=== PATIENT | female | born 1970 | race Caucasian/White ===

== ENCOUNTER → 2016-08-23 | Outpatient (CLI) | payer OTHER, MEDICAID ==
[~2016-08-23] MED LIST: GABA100C4 PO; IBUP800T23 PO; MELA1TAB18 PO; NORC5TAB PO; NORT10CA PO; OXYC-360 PO; PREN0.01 PO; PSEU30TA PO; ZOLO25TA PO
--- NOTE | 2016-08-23 10:20 | RADRPT ---
EXAM DATE/TIME: 08/23/2016 08:17 [facility] COMPARISON: No previous studies available for comparison. INDICATIONS : Right thumb pain post fall with loss of strength. MEDICAL HISTORY : None. SURGICAL HISTORY : Umbilical hernia repair. ENCOUNTER: Subsequent ACUITY: 3 weeks PAIN SCORE: 3/10 LOCATION: Right thumb TECHNIQUE: Multiplanar, multisequence MRI examination was performed without contrast. FINDINGS: BONE/CARTILAGE: Bone marrow signal is homogeneous. Articular cartilage signal is within normal limits. TENDONS: All of the visualized tendons are intact. MISCELLANEOUS: The ulnar collateral ligament of the first carpal phalangeal joint is torn. There is a 1 mm separatio n between the torn segments. The base of the ligament at its metacarpal attachment is obliquely flare d outward. Surrounding tissue as the appearance of granulation tissue indicating that this is subacut e. The radial collateral ligament appears intact. CONCLUSION: Ulnar collateral ligament injury of the thumb at the first metacarpal phalangeal joint characteristic of a Stener lesion. Degree of separation and orientation of the base of the ligament may not be amenable to spontaneous h ealing. Stephen Jose MD on August 23, 2016 at 9:55 Board Certified Radiologist. This report was verified electronically.
== END ==
LOC: HRAD 07:34
DX: S63.649D Sprain of metacarpophalangeal joint of unspecified thumb, subsequent encounter (principal); M25.541 Pain in joints of right hand; X58.XXXD Exposure to other specified factors, subsequent encounter
CPT/HCPCS: 73218

== ENCOUNTER → 2016-09-20 | Day surgery (SDC) | payer OTHER, MEDICAID ==
[~2016-09-20] VITALS: Ht 170.2 cm; Wt 84.5 kg
[~2016-09-20] MED LIST changes: +*ONDANSETRON 4 MG VIAL PERIprocedural Use ONLY ONE; +ACETAMINOPHEN 1000 MG/100 ML VIAL IV ONE; +BUPIVACAINE HCL PF 0.5% 30 ML VIAL ONE; +DEXT 5%-NACL 0.45% 1000 ML INJ 1,000 ML IV SCH; +DO NOT ADM ANY ANTICOAGULANT DRUGS XX PRN; +FAMOTIDINE 20 MG/2 ML VIAL ONE; +INSULIN HUMAN REGULAR 1,000 UNITS/10 ML VIAL SQ PRN; +LACTATED RINGER'S 1000 ML IV SCH; +METOPROLOL TARTRATE 25 MG TAB PO PRN; +MIDAZOLAM HCL 2 MG/2 ML VIAL ONE; +ONDANSETRON HCL 4 MG/2 ML VIAL IV PUSH ONE; -OXYC-360 PO; +POVIDONE IODINE 10% OINT 1 PACKET TOP ONE; -PREN0.01 PO; +PROPOFOL 200 MG/20 ML AMP IV ONE; -PSEU30TA PO; +SODIUM CHLORID 0.9% 500 ML IV SCH; +SODIUM CHLORIDE 0.9% FLUSH 5 ML FLUSH IVF PRN; +SODIUM CHLORIDE 0.9% FLUSH 5 ML FLUSH IVF SCH; -ZOLO25TA PO; +ceFAZolin 2 GM PREMIX 50 ML IV SCH; +ceFAZolin 2 GM PREMIX 50 ML ONE
[2016-09-20 10:08] VITALS: BP 150/79; PULSE 80; RESP 16; TEMP 98; O2SAT 100
[2016-09-20 10:34] LABS: AUTOMATED NEUTROPHIL # 4.2 TH/MM3 (1.8-7.7); BASOPHIL % 0.6 % (0.0-2.0); EOSINOPHIL # 0.1 TH/MM3 (0-0.4); EOSINOPHIL % 1.3 % (0.0-4.0); HEMO FLAGS DIFF FINAL; LYMPH % 22.3 % (9.0-44.0); LYMPHOCYTE # 1.4 TH/MM3 (1.0-4.8); MEAN CELL VOLUME 86.7 FL (80.0-100.0); MEAN CORPUSCULAR HEMOGLOBIN 29.7 PG (27.0-34.0); MEAN CORPUSCULAR HGB CONC 34.2 % (32.0-36.0); MONO % 7.7 % (0.0-8.0); NEUT % 68.1 % (16.0-70.0); PLATELET COUNT 176 TH/MM3 (150-450); RED BLOOD COUNT 4.73 MIL/MM3 (4.00-5.30); RED CELL DISTRIBUTION WIDTH 12.9 % (11.6-17.2); WHITE BLOOD COUNT 6.1 TH/MM3 (4.0-11.0)
--- NOTE | 2016-09-20 11:19 | HP.UPD ---
H&P Update Date: Sep 20, 2016 Note The Pre-Admit History and Physical Examination regarding the above named patient was reviewed (including, but not limited to, vital signs, medications, allergies, co-morbid conditions), and upon re-examination it is noted that: Indicated with "X" x - the patient's condition has not significantly changed since the last examination. [] - the patient's condition has changed since the last examination. Changes: Zayra Jorge MD Sep 20, 2016 11:19
--- NOTE | 2016-09-20 13:55 | HHI.PR ---
Immediate Post Op Note Procedure Date: Sep 20, 2016 Pre Op Diagnosis: (1) Sprain of metacarpophalangeal (joint) of hand Post Op Diagnosis: (1) Sprain of metacarpophalangeal (joint) of hand Surgeon: Zayra Jorge Ordinary Seaman(s): None Procedure: Repair of tear of right thumb metacarpal phalangeal joint ulnar collateral ligament. Anesthesia: General Drains: None Tourniquet time (min at mmHg) 1 hour and 7 minutes at 220 mmHg. Patient to: PACU Patient Condition: Good Implant/Devices: SEE IMPLANT LOG (if applicable) Date/Time of Procedure: SEE SURGICAL CARE RECORD Zayra Jorge MD Sep 20, 2016 13:55
[2016-09-20 15:40] VITALS: BP 133/71; PULSE 94; RESP 16; TEMP 98.9; O2SAT 98
--- NOTE | 2016-09-21 17:53 | MP ---
cc: CHRISTIANO LOWERY M.D. DATE OF SURGERY: 09/20/2016. PREOPERATIVE DIAGNOSIS: Sprain of the right thumb MP joint ulnar collateral ligament. POSTOPERATIVE DIAGNOSIS: Sprain of the right thumb MP joint ulnar collateral ligament. OPERATIVE PROCEDURE PERFORMED: repair of the ulnar collateral ligament of the right thumb MP joint. ANESTHESIA: General. SURGEON: Christiano Lowery M.D. INDICATIONS FOR THE PROCEDURE: 46-year-old female who injured her thumb approximately a month ago. FINDINGS: The lower lip of the ligament was completely torn. The upper portion of the ligament was completely intact. There was definite laxity. The lower ligament, which had avulsed from the base of the proximal phalanx was outside of the aponeurosis creating a Stener lesion. At the completion of the procedure, the MP joint was stabilized into an anatomic position. The ligament had been repaired. TOURNIQUET TIME: One hour and seven minutes. DESCRIPTION OF THE PROCEDURE IN DETAIL: The patient was seen preoperatively where the site and side were identified and marked. The patient was then taken to the operating room and placed in a supine position. Her identity was checked against the arm band and the consent form site and side confirmed, time-out called prior to beginning the procedure. The right upper extremity was prepped with Hibiclens and draped in the usual sterile fashion. The area to be incised were outlined with a marking pen as a zigzag incision over the ulnar collateral ligament. The arm was exsanguinated and the tourniquet inflated to 220 mmHg. Bupivacaine 0.5% plain was then injected proximally as a field block. The incision was made down through skin down to the subcutaneous tissue. Under loupe magnification, flaps were elevated and raised. The ligament was identified and from scarring and adjacent nerves and subcutaneous tissue. It was then from the aponeurosis. The aponeurosis was then opened by incising it just to the ulnar side of the extensor tendon and reflected in an ulnar direction exposing the joint. The ligament was carefully dissected free of its attachments to the extensor aponeurosis. The wound was inspected and it was noted that the dorsal portion of the ligament was intact. There was some instability on the lower portion, but this was minimal. There was some adequate tissue where the lower portion had avulsed from the base of the proximal phalanx. The decision was made to repair this portion of the ligament. The thumb was then placed in an ulnar direction at the MP joint to take the stress off the joint and an 045 K-wire was driven from proximal to distal across the joint. The position was checked with a mini C-arm. The pin was cut to length, it was bent and a Nathaniel ball was placed on top of the hand. The ligament was then debrided on both the proximal distal portion and it was repaired with 3-0 Ethibond suture material. An additional stitch of 4-0 Mersilene was used to secure the ligament to the adjacent dorsal ligament. Once the ligament was repaired, the wound was copiously irrigated with saline and the extensor aponeurosis was repaired with 4-0 Mersilene suture material. The wound was again irrigated and additional Marcaine was injected into this area. The wound was then closed with interrupted running 5-0 nylon suture. The tourniquet was released after 1 hour and 7 minutes. Pressure was applied. After several minutes, there was no evidence of any oozing and a dressing was applied using povidone-iodine ointment, Adaptic, Telfa, fluffy gauze and a thumb spica splint. The patient was then taken from the operating room to the recovery room in satisfactory condition having tolerated the procedure well. Postoperative instructions include keeping the arm elevated, keeping the area clean and dry and returning in several days for followup. The patient was given a prescription for [place] 5/325 as well as ibuprofen 800 mg. MD CARLIE Drake/RONALD /2:00 PM /5:45 PM
== END | disposition home or self-care (01) ==
LOC: HSDC 09:24
PROVIDERS: ATTEND Specialist
DX: S63.641A Sprain of metacarpophalangeal joint of right thumb, initial encounter (principal); W19.XXXA Unspecified fall, initial encounter
CPT/HCPCS: 01810; 26540; 76000; 85025; J0131; J0690; J2250; J2405; J3010; J7120; L3808

== ENCOUNTER → 2017-02-05 | Outpatient (CLI) | payer OTHER ==
[~2017-02-05] MED LIST changes: -*ONDANSETRON 4 MG VIAL PERIprocedural Use ONLY ONE; -ACETAMINOPHEN 1000 MG/100 ML VIAL IV ONE; +BACL10TA PO; -BUPIVACAINE HCL PF 0.5% 30 ML VIAL ONE; -DEXT 5%-NACL 0.45% 1000 ML INJ 1,000 ML IV SCH; -DO NOT ADM ANY ANTICOAGULANT DRUGS XX PRN; -FAMOTIDINE 20 MG/2 ML VIAL ONE; -IBUP800T23 PO; -INSULIN HUMAN REGULAR 1,000 UNITS/10 ML VIAL SQ PRN; -LACTATED RINGER'S 1000 ML IV SCH; -METOPROLOL TARTRATE 25 MG TAB PO PRN; -MIDAZOLAM HCL 2 MG/2 ML VIAL ONE; -NORC5TAB PO; -ONDANSETRON HCL 4 MG/2 ML VIAL IV PUSH ONE; -POVIDONE IODINE 10% OINT 1 PACKET TOP ONE; -PROPOFOL 200 MG/20 ML AMP IV ONE; -SODIUM CHLORID 0.9% 500 ML IV SCH; -SODIUM CHLORIDE 0.9% FLUSH 5 ML FLUSH IVF PRN; -SODIUM CHLORIDE 0.9% FLUSH 5 ML FLUSH IVF SCH; -ceFAZolin 2 GM PREMIX 50 ML IV SCH; -ceFAZolin 2 GM PREMIX 50 ML ONE
--- NOTE | 2017-02-05 17:03 | RADRPT ---
EXAM DATE/TIME: 02/05/2017 16:50 [facility] COMPARISON: No previous studies available for comparison. INDICATIONS : Right knee pain and swelling for one week. No known injury. MEDICAL HISTORY : Osteoarthritis. SURGICAL HISTORY : None. ENCOUNTER: Initial ACUITY: 1 week PAIN SCORE: 4/10 LOCATION: Right knee. FINDINGS: Four view examination of the right knee demonstrates no evidence of fracture or dislocation. Bony mi neralization is normal. Mild bony degenerative changes. The suprapatellar soft tissues have a normal configuration. CONCLUSION: Mild primary bony degenerative changes at the knee. Miller Balderas MD on February 05, 2017 at 17:00 Board Certified Radiologist. This report was verified electronically.
== END ==
LOC: HRAD 16:18
DX: M25.561 Pain in right knee (principal)
CPT/HCPCS: 73564

== ENCOUNTER → 2017-04-09 | Outpatient (CLI) | payer OTHER ==
--- NOTE | 2017-04-09 16:51 | RADRPT ---
EXAM DATE/TIME: 04/09/2017 16:14 [facility] COMPARISON: No previous studies available for comparison. INDICATIONS : Right hand, 1st digit growth at the MCPJ with pain. MEDICAL HISTORY : None. SURGICAL HISTORY : Right hand, thumb tendon repair in [facility]. ENCOUNTER: Initial ACUITY: 3 months PAIN SCORE: 7/10 LOCATION: Right hand, 1st digit. FINDINGS: Three view examination of the right hand demonstrates no soft tissue swelling, dislocation, or fractu re. The carpal bones appear intact. The interphalangeal and metacarpophalangeal joints are intact. Bony mineralization is normal. There may be some partial capsular calcification at the first MCP travis int. Small spur subjacent to the arrow indicating the area of pain probably represents a region of no rmal tendinous attachment. CONCLUSION: 1. Possible partial capsular calcification at the first MCP joint. 2. Otherwise negative. No fracture. Griffin Moody MD on April 09, 2017 at 16:47 Board Certified Radiologist. This report was verified electronically.
== END ==
LOC: HRAD 16:03
PROVIDERS: ATTEND Family Medicine
DX: M79.644 Pain in right finger(s) (principal)
CPT/HCPCS: 73130

== ENCOUNTER 2017-05-07 22:36 | Emergency (ER) | payer OTHER ==
[~2017-05-07] VITALS: Ht 170.2 cm; Wt 85.5 kg
[2017-05-07 22:42] VITALS: BP_SYST 136; BP_SYST 164; BP_DIAS 77; BP_DIAS 91; PULSE 91; RESP 16; TEMP 97.9; O2SAT 97
[2017-05-07] MEDS ORDERED: IBUPROFEN 600 MG TAB PO ONE (23:45)
[2017-05-08] MEDS ORDERED: DIPHTH/TETANUS/ACEL PERTUSSIS (BOOSTER) 0.5 ML VIAL/PFS IM ONE
[2017-05-08] MEDS ORDERED: LIDOCAINE HCL 2% 50 ML VIAL NERV BLOCK ONE
--- NOTE | 2017-05-08 00:36 | PD ---
HPI Chief Complaint: Laceration/Skin Injury Time Seen by Provider: 23:45 Travel History International Travel<30 days: No Contact w/Intl Traveler<30days: No Traveled to known affect area: No History of Present Illness HPI patient is a 47-year-old female who presents emergency department after sustaining a laceration to her left upper extremity. Patient was at work when she reached into a parked car machine and cut herself on the machine. States it happened approximately 2 hours prior to arrival. She had put some antibiotic cream on it. Denies any other injuries. PFSH Past Medical History Cancer: No Cardiovascular Problems: No Diabetes: No Diminished Hearing: No Endocrine: No Genitourinary: No Hepatitis: No Hiatal Hernia: No Immune Disorder: No Musculoskeletal: Yes (arthritis ) Neurologic: No Psychiatric: Yes Reproductive: No Respiratory: No Immunizations Current: No Thyroid Disease: No Tetanus Vaccination: Unknown Influenza Vaccination: No ?: Not LMP: 05/05/17 : 5 Para: 3 Miscarriage: 1 Past Surgical History Abdominal Surgery: Yes (hernia repair) AICD: No Joint Replacement: No Pacemaker: No Other Surgery: Yes Social History Alcohol Use: Yes (RARELY) Tobacco Use: No Substance Use: No Allergies-Medications (Allergen,Severity, Reaction): Coded Allergies: No Known Allergies (Verified , 05/07/17) Reported Meds & Prescriptions Reported Meds & Active Scripts Active Reported Baclofen 10 Mg Tab 10 Mg PO TID Melatonin 10 Mg Tab 10 Mg PO HS PRN Gabapentin 100 Mg Cap 100 Mg PO HS Nortriptyline (Nortriptyline HCl) 10 Mg Cap 30 Mg PO DAILY Review of Systems Except as stated in HPI: all other systems reviewed are Neg Physical Exam Narrative GENERAL: Well-nourished, well-developed patient. SKIN: Focused skin assessment warm/dry. There is a 1-1/2 cinnamon a laceration transverse over the volar aspect of the left forearm. No bleeding, tendon motions intact. No foreign body is seen. HEAD: Normocephalic. EYES: No scleral icterus. No injection or drainage. NECK: Supple, trachea midline. No JVD or lymphadenopathy. CARDIOVASCULAR: Regular rate and rhythm without murmurs, gallops, or rubs. RESPIRATORY: Breath sounds equal bilaterally. No accessory muscle use. GASTROINTESTINAL: Abdomen soft, non-tender, nondistended. MUSCULOSKELETAL: No cyanosis, or edema. BACK: Nontender without obvious deformity. No CVA tenderness. Data Data Last Documented VS Vital Signs Date Time Temp Pulse Resp B/P (MAP) Pulse Ox O2 Delivery O2 Flow Rate FiO2 05/07/17 23:48 18 05/07/17 22:42 97.9 91 164/91 (115) 97 Orders Orders Ibuprofen (Motrin) (05/07/17 23:45) Lidocaine 2% Inj (Xylocaine 2% Inj) (05/08/17 00:00) Kgsl-Uef-Herhiv (Booster) Inj (Boostrix (05/08/17 00:00) MDM Medical Decision Making Medical Screen Exam Complete: Yes Emergency Medical Condition: Yes Differential Diagnosis Laceration, infection unlikely, tendon laceration highly unlikely. Narrative Course Patient roomed emerged permit, wound is approximated, no indication for antibiotics. Discussed wound care and follow-up for suture removal. Procedures Procedure Narrative LACERATION LOCATION: Left forearm LENGTH: 1&1/2 cm NUMBER OF STITCHES/GARETT: 1 REPAIR: The area of the laceration was irrigated copiously with normal saline. The laceration was infiltrated with 2% lidocaine plain. The wound was copiously irrigated and explored without evidence of foreign body, tendon injury or neurovascular injury. The wound was closed using 1 times nylon 3-0. This was a single layer repair. A sterile dressing was applied. The patient was advised to keep the dressing clean and dry. Patient tolerated the procedure well. Diagnosis Primary Impression: Laceration of forearm, left Additional Instructions: Return to ED in 10-14 days for suture removal. Disposition: 01 DISCHARGE HOME Condition: Stable Elias Gibbons MD May 08, 2017 00:36
== END 2017-05-08 01:01 | disposition home or self-care (01) ==
LOC: PHED 22:36 → PHEFT 05-08 01:01
DX: S51.812A Laceration without foreign body of left forearm, initial encounter (principal); Z23 Encounter for immunization; Z87.39 Personal history of other diseases of the musculoskeletal system and connective tissue; W31.89XA Contact with other specified machinery, initial encounter; Y99.0 Civilian activity done for income or pay
CPT/HCPCS: 12001; 90471; 90715

== ENCOUNTER 2017-05-19 12:22 | Emergency (ER) | payer OTHER ==
[~2017-05-19] VITALS: Ht 170.2 cm; Wt 85.0 kg
[2017-05-19 12:24] VITALS: BP 139/82; PULSE 83; RESP 16; TEMP 98; O2SAT 97
--- NOTE | 2017-05-19 13:01 | PD ---
HPI Chief Complaint: Wound/Suture/Staple Re-Check Time Seen by Provider: 12:40 Travel History International Travel<30 days: No Contact w/Intl Traveler<30days: No Traveled to known affect area: No History of Present Illness HPI 47-year-old female that presents to the ED for evaluation of suture removal. Patient had a laceration to her left forearm and was repaired here 10 days ago. She has no complaints from it. She has one suture in place. No signs of infection. No pain. No other medical complaint. She has been doing wound care as told by her doctor. This is a worker's comp complaint. PFSH Past Medical History Cancer: No Cardiovascular Problems: No Diabetes: No Diminished Hearing: No Endocrine: No Genitourinary: No Hepatitis: No Hiatal Hernia: No Immune Disorder: No Musculoskeletal: Yes (arthritis ) Neurologic: No Psychiatric: Yes Reproductive: No Respiratory: No Immunizations Current: No Thyroid Disease: No ?: Not LMP: 05/05/17 : 5 Para: 3 Miscarriage: 1 Past Surgical History Abdominal Surgery: Yes (hernia repair) AICD: No Joint Replacement: No Pacemaker: No Other Surgery: Yes Social History Alcohol Use: Yes (RARELY) Tobacco Use: No Substance Use: No Allergies-Medications (Allergen,Severity, Reaction): Coded Allergies: No Known Allergies (Verified , 05/19/17) Reported Meds & Prescriptions Reported Meds & Active Scripts Active Reported Baclofen 10 Mg Tab 10 Mg PO TID Melatonin 10 Mg Tab 10 Mg PO HS PRN Gabapentin 100 Mg Cap 100 Mg PO HS Nortriptyline (Nortriptyline HCl) 10 Mg Cap 30 Mg PO DAILY Review of Systems Except as stated in HPI: all other systems reviewed are Neg Physical Exam Narrative GENERAL: SKIN: Warm and dry. Patient has superficial 1 similar laceration to left forearm. One suture noted. Well-healed. No signs of infection or erythema HEAD: Atraumatic. Normocephalic. EYES: Pupils equal and round. No scleral icterus. No injection or drainage. ENT: No nasal bleeding or discharge. Mucous membranes pink and moist. NECK: Trachea midline. No JVD. CARDIOVASCULAR: Regular rate and rhythm. RESPIRATORY: No accessory muscle use. Clear to auscultation. Breath sounds equal bilaterally. GASTROINTESTINAL: Abdomen soft, non-tender, nondistended. Hepatic and splenic margins not palpable. MUSCULOSKELETAL: Extremities without clubbing, cyanosis, or edema. No obvious deformities. Full range of motion of the upper and lower extremities bilaterally. 2+ pulses bilaterally. NEUROLOGICAL: Awake and alert. No obvious cranial nerve deficits. Motor grossly within normal limits. Five out of 5 muscle strength in the arms and legs. Normal speech. PSYCHIATRIC: Appropriate mood and affect; insight and judgment normal. Data Data Last Documented VS Vital Signs Date Time Temp Pulse Resp B/P (MAP) Pulse Ox O2 Delivery O2 Flow Rate FiO2 05/19/17 12:24 98.0 83 16 139/82 (101) 97 Orders Orders Ed Discharge Order (05/19/17 12:58) MDM Medical Decision Making Medical Screen Exam Complete: Yes Emergency Medical Condition: Yes Medical Record Reviewed: Yes Differential Diagnosis Suture removal versus wound check versus wound infection Narrative Course 39-year-old female that presents to the ED for evaluation suture removal. Patient was properly examined and was found to have signs and symptoms consistent suture removal. After splint proceeded to the patient and she agreed to it suture was removed using sterile suture removal kit by me. One suture was removed with minimal discomfort for the patient. Patient was told to continue doing wound care. Close follow-up with PCP. See ED worsening symptoms. Diagnosis Primary Impression: Visit for suture removal Patient Instructions: General Instructions Additional Instructions: Follow-up with PCP. See ED for any worsening symptoms. Med/Other Pt SpecificInfo: No Change to Meds, Wound Care Disposition: 01 DISCHARGE HOME Condition: Stable Jonas Reese May 19, 2017 13:01
== END 2017-05-19 13:16 | disposition home or self-care (01) ==
LOC: PHEFT 12:22
DX: S51.812D Laceration without foreign body of left forearm, subsequent encounter (principal); X58.XXXD Exposure to other specified factors, subsequent encounter
CPT/HCPCS: 99281

== ENCOUNTER 2017-06-22 13:42 | Emergency (ER) | payer OTHER ==
[~2017-06-22] VITALS: Ht 170.2 cm; Wt 84.5 kg
[2017-06-22 13:47] VITALS: BP 166/71; PULSE 79; RESP 16; TEMP 98.3; O2SAT 98
[2017-06-22] MEDS ORDERED: AMOXICILLIN/CLAVULANATE K 875 MG TAB PO ONE (14:00)
[2017-06-22] MEDS ORDERED: AUGM875T3 PO (14:02)
--- NOTE | 2017-06-22 14:03 | PD ---
HPI Chief Complaint: Bite or Sting Time Seen by Provider: 13:57 Travel History International Travel<30 days: No Contact w/Intl Traveler<30days: No Traveled to known affect area: No History of Present Illness HPI The patient is a 47-year-old female who presents to the emergency department for a cat bite to the right foot. The patient states there is a cat that comes under the neighbors fence, she believes it is the neighbors pet cat, and she has been feeding the cat recently. The patient states she was feeding the cat yesterday, which she accidentally stepped on the palm of the cat, the cat bit her on the foot. She states it Has always acted normally, only bit her after she accidentally stepped on the palm of the cat. The patient states she had mild discomfort at the site of the bite yesterday, however, awakened this morning and noticed some surrounding redness. She denies any difficulty moving the toes of the affected foot, but does note the area slightly sore. She states her last tetanus shot was earlier this year after an accidental laceration. She denies any fever, chills, or sweats. Symptoms are mild, exacerbated after she was bit by a cat, and there are no current alleviating factors. PFSH Past Medical History Cancer: No Cardiovascular Problems: No Diabetes: No Diminished Hearing: No Endocrine: No Genitourinary: No Hepatitis: No Hiatal Hernia: No Immune Disorder: No Musculoskeletal: Yes (arthritis ) Neurologic: No Psychiatric: Yes Reproductive: No Respiratory: No Immunizations Current: No Thyroid Disease: No ?: Not LMP: 06/06/17 : 5 Para: 3 Miscarriage: 1 Past Surgical History Abdominal Surgery: Yes (hernia repair) AICD: No Joint Replacement: No Pacemaker: No Other Surgery: Yes Social History Alcohol Use: Yes (RARELY) Tobacco Use: No Substance Use: No Allergies-Medications (Allergen,Severity, Reaction): Coded Allergies: No Known Allergies (Verified Adverse Reaction, Unknown, 06/22/17) Reported Meds & Prescriptions Reported Meds & Active Scripts Active Reported Baclofen 10 Mg Tab 10 Mg PO TID Melatonin 10 Mg Tab 10 Mg PO HS PRN Gabapentin 100 Mg Cap 100 Mg PO HS Nortriptyline (Nortriptyline HCl) 10 Mg Cap 30 Mg PO DAILY Review of Systems Except as stated in HPI: all other systems reviewed are Neg General / Constitutional: No: Fever Musculoskeletal: Positive: Pain Skin: Positive Other (Bite with redness to the anterior aspect of the right foot) Neurologic: Positive: Other (history of underlying neurologic disorder and trigeminal neuralgia), No: Paresthesia, Sensory Disturbance Physical Exam Narrative GENERAL: Awake, alert, pleasant 47-year-old female who appears her stated age and is in no acute respiratory distress. SKIN: Focused skin assessment warm/dry. 2 small puncture wounds to the anterior aspect of the right foot at the base of the second and third toe. No drainage noted. No underlying fluctuance noted. Surrounding erythema noted. HEAD: Atraumatic. Normocephalic. EYES: Pupils equal and round. No scleral icterus. No injection or drainage. MUSCULOSKELETAL: No obvious deformities. No clubbing. No cyanosis. No edema. Puncture wounds to the anterior aspect of the right foot with surrounding erythema but no palpable fluctuance noted. I am able to flex and extend the toes without difficulty, there does not appear to be tendon sheath involvement. NEUROLOGICAL: Awake and alert. No obvious cranial nerve deficits. Motor grossly within normal limits. Normal speech. PSYCHIATRIC: Appropriate mood and affect; insight and judgment normal. Data Data Last Documented VS Vital Signs Date Time Temp Pulse Resp B/P (MAP) Pulse Ox O2 Delivery O2 Flow Rate FiO2 06/22/17 13:47 98.3 79 16 166/71 (102) 98 Orders Orders Amoxicil-Clavulanate (Augmentin) (06/22/17 14:00) MDM Medical Decision Making Medical Screen Exam Complete: Yes Emergency Medical Condition: Yes Medical Record Reviewed: Yes Differential Diagnosis Differential diagnosis includes puncture wound, cat bite, infected wound, tenosynovitis, abscess, cellulitis. Narrative Course The patient states her tetanus shot is up to date. The patient was administered Augmentin 875 mg orally, will be discharged home on Augmentin. She is advised to soak the area twice a day, monitor for signs of worsening infection, and to monitor the cat's behavior. Return if symptoms worsen or progress. Follow-up with her primary physician. Diagnosis Primary Impression: Cat bite of foot Qualified Codes: S91.351A - Open bite, right foot, initial encounter; W55.01XA - Bitten by cat, initial encounter Patient Instructions: General Instructions Additional Instructions: Wound care instructions. Monitor for signs of increasing infection. Monitor the cat's behavior for the next several weeks. Return if symptoms worsen or progress. Follow-up with your primary physician. Med/Other Pt SpecificInfo: Prescription(s) given Scripts Amoxicillin-Clavulanate (Augmentin) 875-125 Mg Tab 1 TAB PO BID for Infection for 10 Days, #20 TAB 0 Refills Prov: Warren Maddox MD 06/22/17 Disposition: 01 DISCHARGE HOME Condition: Stable aWrren Maddox MD Jun 22, 2017 14:03
== END 2017-06-22 14:28 | disposition home or self-care (01) ==
LOC: PHEFT 13:42
DX: S91.351A Open bite, right foot, initial encounter (principal); W55.01XA Bitten by cat, initial encounter
CPT/HCPCS: 99283

== ENCOUNTER → 2018-01-06 | Outpatient (CLI) | payer OTHER ==
[~2018-01-06] MED LIST changes: +AUGM875T3 PO
--- NOTE | 2018-01-06 17:36 | RADRPT ---
EXAM DATE: 01/06/2018 5:29 PM EDT AGE/SEX: 47 years / Female INDICATIONS: . Chronic right knee pain. CLINICAL DATA: This is the patient's initial encounter. Patient reports that signs and symptoms have been present for > 1 year and indicates a pain score of 3/10. MEDICAL/SURGICAL HISTORY: . Steroid injections right knee. Umbilical hernia repair. Right thum b repair. COMPARISON: No prior [facility] exams available for comparison. TECHNIQUE: Multiplanar, multisequence MRI examination was performed without contrast. FINDINGS: Cruciate Ligaments: ACL and PCL are intact. Menisci: Some grade 1 signal within the body of the medial meniscus. No discrete meniscal tear is id entified. Triangular shaped loose body posterior to the PCL insertion. Collateral Ligaments: MCL and LCL complexes are intact. Marrow/Cartilage: There is chondral thinning in the medial compartment. There are some underlying [place] edema in the medial femoral condyle. Small cartilaginous fissure involving the lateral femoral con dyle. Chondral thinning of the patella Other: Small joint effusion. CONCLUSION: 1. Impressive chondromalacia involving the medial compartment with some bony edema in the medial fem oral condyle. Loose body posterior to the PCL insertion Electronically signed by: Manpreet Beltran MD 01/06/2018 5:35 PM EDT
== END ==
LOC: HRAD 16:21
PROVIDERS: ATTEND Orthopaedic Surgery
DX: M22.41 Chondromalacia patellae, right knee (principal)
CPT/HCPCS: 73721

== ENCOUNTER → 2018-01-21 | Outpatient (CLI) | payer OTHER ==
--- NOTE | 2018-01-21 14:19 | EKG ---
Date Performed: 01/21/2018 Time Performed: 14:03:24 PTAGE: 47 years EKG: Sinus rhythm . Normal ECG NO PREVIOUS TRACING DOCTOR: Manpreet Armstrong Interpretating Date/Time 01/21/2018 14:17:20
== END ==
LOC: HCAV 13:43
PROVIDERS: ATTEND Family Medicine
DX: Z01.89 Encounter for other specified special examinations (principal)
CPT/HCPCS: 93005